=== PATIENT | male | born 1990 | race Hispanic/Latino ===

== ENCOUNTER 2018-01-16 09:05 | Emergency (ER) | payer OTHER ==
[2018-01-16 09:23] VITALS: BP 116/68; PULSE 75; RESP 20; TEMP 98.1; O2SAT 96
--- NOTE | 2018-01-16 10:26 | ED PDOC ---
Upper Extremity Pain/Injury Time Seen by Provider: 01/16/18 10:04 Chief Complaint (Nursing): Upper Extremity Problem/Injury Chief Complaint (Provider): L wrist injury History Per: Patient History/Exam Limitations: no limitations Additional Complaint(s): Pt states he missed a step going down and fell down 1 step onto hand, no head injury. Now c/o L wrist pain. Past Medical History Reviewed: Nursing Documentation, Vital Signs Vital Signs: Last Vital Signs Temp 98.1 F 01/16/18 09:22 Pulse 75 01/16/18 09:22 Resp 20 01/16/18 09:22 BP 116/68 01/16/18 09:22 Pulse Ox 96 01/16/18 09:22 - Medical History PMH: No Chronic Diseases - Family History Family History: States: Unknown Family Hx - Social History Current smoker - smoking cessation education provided: No - Home Medications Home Medications: Ambulatory Orders Medication Instructions Recorded Erythromycin 0.5% [Erythromycin] 1 applic BOTHEYES QID #1 tube 01/20/16 PrednisoLONE 1% [Pred Forte 1% 1 drop BOTHEYES BID #1 bottle 01/20/16 Opht Susp] Ibuprofen [Motrin] 600 mg PO Q6H PRN #20 tab 01/16/18 - Allergies Allergies/Adverse Reactions: Allergies Allergy/AdvReac Type Severity Reaction Status Date / Time No Known Allergies Allergy Verified 01/16/18 10:03 Review of Systems Musculoskeletal: Positive for: Other (Wrist/hand pain) Skin: Negative for: Rash, Lesions Neurological: Negative for: Weakness, Numbness Physical Exam - Reviewed Nursing Documentation Reviewed: Yes Vital Signs Reviewed: Yes - Physical Exam Appears: Positive for: Well, No Acute Distress Skin: Positive for: Normal Color, Warm, Dry Extremity: Positive for: Normal ROM, Tenderness (Posterior L wrist, FROM, no deformity, no erythema), Capillary Refill (<2 sec), Other (+2 radial pulse). Negative for: Deformity, Swelling Neurologic/Psych: Positive for: Alert, Oriented. Negative for: Motor/Sensory Deficits - ECG O2 Sat by Pulse Oximetry: 96 - Other Rad XR L wrist X-Ray: Read By Radiologist XR L hand X-Ray: Read By Radiologist Medical Decision Making Medical Decision Makin yo male with wrist injury. - XR L wrist - XR L hand - Motrin Disposition - Clinical Impression Clinical Impression: Wrist contusion - Disposition Disposition: Routine/Home Disposition Time: 11:42 Condition: GOOD Additional Instructions: FOLLOW-UP WITH [facility]. Prescriptions: Ibuprofen [Motrin] 600 mg PO Q6H PRN #20 tab PRN Reason: Pain, Moderate (4-7) Instructions: Contusion (DC) Forms: [facility] ([place])
--- NOTE | 2018-01-16 11:33 | RAD ---
PROCEDURE: Left Wrist Radiographs. HISTORY: Fall COMPARISON: None. FINDINGS: BONES: No acute fracture. JOINTS: Unremarkable. SOFT TISSUES: Normal. OTHER FINDINGS: None. IMPRESSION: No demonstrated fracture or dislocation.
== END 2018-01-16 12:08 | disposition home or self-care (01) ==
LOC: H.ER 09:05
DX: S60.212A Contusion of left wrist, initial encounter (principal); W10.9XXA Fall (on) (from) unspecified stairs and steps, initial encounter; Y99.0 Civilian activity done for income or pay

== ENCOUNTER 2018-08-07 06:38 | Emergency (ER) | payer OTHER ==
[2018-08-07 06:54] VITALS: RESP 18
--- NOTE | 2018-08-07 07:27 | ED PDOC ---
Upper Extremity Pain/Injury Time Seen by Provider: 08/07/18 07:14 Chief Complaint (Nursing): Upper Extremity Problem/Injury Chief Complaint (Provider): Right Shoulder Pain History Per: Patient History/Exam Limitations: no limitations Current Symptoms Are (Timing): Still Present Additional Complaint(s): 28 year old male presents to the ED with right shoulder pain. Patient reports pain is a stabbing pain and nonradiating. He states he was shutting the door when he felt a pop and sharp pain. He reports he has had problems with both shoulders and his shoulders have dislocated. He has not taken medications for pain. PMD: none Past Medical History Reviewed: Historical Data, Nursing Documentation, Vital Signs Vital Signs: Last Vital Signs Temp 98.2 F 08/07/18 06:47 Pulse 79 08/07/18 06:47 Resp 18 08/07/18 06:47 BP 136/82 08/07/18 06:47 Pulse Ox 96 08/07/18 06:47 - Medical History PMH: No Chronic Diseases - Surgical History Surgical History: No Surg Hx - Family History Family History: States: Unknown Family Hx - Home Medications Home Medications: Ambulatory Orders Medication Instructions Recorded Erythromycin 0.5% [Erythromycin] 1 applic BOTHEYES QID #1 tube 01/20/16 PrednisoLONE 1% [Pred Forte 1% 1 drop BOTHEYES BID #1 bottle 01/20/16 Opht Susp] Cyclobenzaprine [Cyclobenzaprine 10 mg PO TID #15 tab 08/07/18 HCl] Ibuprofen [Motrin] 600 mg PO Q6H PRN #20 tab 08/07/18 - Allergies Allergies/Adverse Reactions: Allergies Allergy/AdvReac Type Severity Reaction Status Date / Time No Known Allergies Allergy Verified 01/16/18 10:03 Review of Systems ROS Statement: Except As Marked, All Systems Reviewed And Found Negative Musculoskeletal: Positive for: Shoulder Pain (right) Physical Exam - Reviewed Nursing Documentation Reviewed: Yes Vital Signs Reviewed: Yes - Physical Exam Appears: Positive for: No Acute Distress Head Exam: Positive for: ATRAUMATIC, NORMAL INSPECTION, NORMOCEPHALIC Skin: Positive for: Normal Color, Warm, Dry Eye Exam: Positive for: Normal appearance, EOMI Neck: Positive for: Normal, Painless ROM Pulses-Radial (L): 2+ Pulses-Radial (R): 2+ Extremity: Positive for: Other (Limited ROM secondary to pain. Able to lift arm to the horizontal position. All movements intact including elbow, hand, and fingers.). Negative for: Deformity (of the right shoulder), Swelling (of the right shoulder) Neurologic/Psych: Positive for: Alert, Oriented - ECG O2 Sat by Pulse Oximetry: 96 (RA) Pulse Ox Interpretation: Normal - Progress Re-evaluation Time: 08:15 Condition: Re-examined, Improved Medical Decision Making Medical Decision Making: Initial Impression: Shoulder pain Differential includes rotator cuff injury, less likely dislocation. Initial Plan: --Flexeril 10mg PO --Toradol 30mg IM --Right shoulder X-ray 07:59 Right shoulder X-ray FINDINGS: BONES: Normal. No fracture. JOINTS: Normal. Glenohumeral and acromioclavicular joints preserved. No osteoarthritis. SOFT TISSUES: Normal. OTHER FINDINGS: None. IMPRESSION: Normal radiographs of the right shoulder. Scribe Attestation: Documented by Jerrell Cooley acting as a scribe for Ariadna Fleming MD. Provider Scribe Attestation: All medical record entries made by the Scribe were at my direction and personally dictated by me. I have reviewed the chart and agree that the record accurately reflects my personal performance of the history, physical exam, medical decision making, and the department course for this patient. I have also personally directed, reviewed, and agree with the discharge instructions and disposition. Disposition - Clinical Impression Clinical Impression: Sprain of shoulder, right - Patient ED Disposition Is Patient to be Admitted: No Doctor Will See Patient In The: Office Counseled Patient/Family Regarding: Studies Performed, Diagnosis, Need For Followup - Disposition Referrals: Giovana Zamora MD [Staff Provider] - Disposition: Routine/Home Disposition Time: 08:15 Condition: GOOD Additional Instructions: WINNIE TARIQ, thank you for letting us take care of you today. Your provider was Ariadna Fleming MD and you were treated for RIGHT SHOULDER PAIN. The emergency medical care you received today was directed at your acute symptoms. If you were prescribed any medication, please fill it and take as directed. It may take several days for your symptoms to resolve. Return to the Emergency Department if your symptoms worsen, do not improve, or if you have any other problems. Please contact your doctor or call one of the physicians/clinics you have been referred to that are listed on the Patient Visit Information form that is included in your discharge packet. Bring any paperwork you were given at discharge with you along with any medications you are taking to your follow up visit. Our treatment cannot replace ongoing medical care by a primary care provider outside of the emergency department. Thank you for allowing the [facility] team to be part of your care today. If you had an X-Ray or CT scan: A Radiologist will review the ED reading if any change in treatment is needed we will contact you. If you had a blood, urine, or wound culture: It will take several days for the results, if any change in treatment is needed we will contact you. If you had an STI test: It will take 48 hours for the results. Please call after 1 week if you have not heard back. Prescriptions: Cyclobenzaprine [Cyclobenzaprine HCl] 10 mg PO TID #15 tab Ibuprofen [Motrin] 600 mg PO Q6H PRN #20 tab PRN Reason: Pain, Moderate (4-7) Instructions: Shoulder Sprain
--- NOTE | 2018-08-07 08:03 | RAD ---
Date of service: 08/07/2018 PROCEDURE: Radiographs of the Right Shoulder HISTORY: right shoulder COMPARISON: No prior. FINDINGS: BONES: Normal. No fracture. JOINTS: Normal. Glenohumeral and acromioclavicular joints preserved. No osteoarthritis. SOFT TISSUES: Normal. OTHER FINDINGS: None. IMPRESSION: Normal radiographs of the right shoulder.
[2018-08-07 09:08] VITALS: BP 134/82; PULSE 77; TEMP 98; O2SAT 99
== END 2018-08-07 09:05 | disposition home or self-care (01) ==
LOC: H.ER 06:38
DX: S43.401A Unspecified sprain of right shoulder joint, initial encounter (principal); X50.9XXA Other and unspecified overexertion or strenuous movements or postures, initial encounter; Y92.89 Other specified places as the place of occurrence of the external cause
CPT/HCPCS: 73030; 96372; 99283; J1885